=== PATIENT | male | born 1955 | race Caucasian/White ===

== ENCOUNTER 2021-08-01 19:03 | Inpatient (IN) | payer MEDICARE ==
[~2021-08-01] VITALS: Ht 177.8 cm; Wt 83.0 kg
[2021-08-01] MEDS ORDERED: ONDANSETRON 4 MG (ZOFRAN) ORAL DISSOLVE TAB PO PRN (22:00)
[2021-08-01] MEDS ORDERED: polyethylene glycoL POWDER 17 GM (MIRALAX) PACK PO PRN (22:00)
[2021-08-01] MEDS ORDERED: ALPRAZolam 0.25 MG (XANAX) TAB PO PRN (22:00)
[2021-08-01] MEDS ORDERED: MELATONIN 3 MG TABLET PO PRN (22:00)
[2021-08-01] MEDS ORDERED: ONDANSETRON 4 MG/2 ML (SDV) Z0FRAN IV PRN (22:00)
[2021-08-01] MEDS ORDERED: diphenhydrAMINE 25 MG TAB (BENADRYL) PO PRN (22:00)
[2021-08-01] MEDS ORDERED: ACETAMINOPHEN 325 MG TABLET PO PRN (22:00)
[2021-08-01 22:22] VITALS: BP 144/88
[2021-08-01 23:30] VITALS: BP 118/77
[2021-08-01 23:54] VITALS: BP 144/88
[2021-08-02] MEDS ORDERED: RT-ALBUTEROL/IPRATROPIUM 3 ML (DUONEB) VIAL INH PRN
[2021-08-02] MEDS: ENOXAPARIN 100 MG/1 ML (LOVENOX) SYR SC SCH ×3 (00:32→21:08)
[2021-08-02 04:05] VITALS: BP 139/73
[2021-08-02 05:28] LABS: HEMATOCRIT 36 % (40-54); HEMOGLOBIN 11.8 g/dL (13.3-17.7); MEAN CORPUSCULAR HEMOGLOBIN 30 pg (25-34); MEAN CORPUSCULAR HGB CONC 33 g/dL (32-36); MEAN CORPUSCULAR VOLUME 91 fL (80-99); MEAN PLATELET VOLUME 9.8 fL (9.0-12.2); PLATELET COUNT 378 10^3/uL (130-400); WHITE BLOOD COUNT 8.4 10^3/uL (4.3-11.0)
[2021-08-02 05:46] LABS: POTASSIUM 4.1 MMOL/L (3.6-5.0)
[2021-08-02 05:47] LABS: CALCIUM 8.5 MG/DL (8.5-10.1)
[2021-08-02 05:52] LABS: CREATININE SERUM 0.62 MG/DL (0.60-1.30)
[2021-08-02 07:34] VITALS: BP 132/87
[2021-08-02] MEDS: DOCUSATE SODIUM 100 MG (COLACE) CAP PO SCH ×2 (08:32→21:02)
[2021-08-02] MEDS ORDERED: IBUP200C11 PO (11:25)
[2021-08-02] MEDS ORDERED: METF-478 PO (11:25)
[2021-08-02] MEDS ORDERED: FLUO5DRO6 OU (11:25)
[2021-08-02] MEDS ORDERED: CHOL500050 PO (11:25)
[2021-08-02] MEDS ORDERED: ASPI-1238 PO (11:25)
[2021-08-02] MEDS ORDERED: DIAZ5TAB49 PO (11:25)
[2021-08-02] MEDS ORDERED: SIMV40TA25 PO (11:25)
[2021-08-02] MEDS ORDERED: OMEP20CA18 PO (11:25)
[2021-08-02] MEDS ORDERED: SALS500T16 PO (11:25)
[2021-08-02] MEDS ORDERED: ACHD5005 PO (11:25)
[2021-08-02] MEDS ORDERED: TRZ50T PO (11:25)
[2021-08-02] MEDS ORDERED: ZINC50TA58 PO (11:25)
[2021-08-02 11:35] VITALS: BP 124/78
--- NOTE | 2021-08-02 12:41 | History & Physical-Hospitalist ---
JOSE DAVID CHAUHAN 08/02/21 1241: History of Present Illness HPI/Chief Complaint The patient is a 65 YO male with a PMH of DMT2, corneal disease, and previous COVID-19 infection, who is admitted for pulmonary embolism. The patient reports being infected with COVID-19 around Thanksgiving time of this year. He was unvaccinated. He reports taking steroids, and possible monoclonal antibody infusion for his COVID. He was not hospitalized. Since his COVID infection he reports tracking his O2 sats, and at times being in the high 70s. DT his low O2 sats he has also started home oxygen at 3L. The patient reports that yesterday he was having SOB and satting in the low 70s while not on O2, which prompted him to go to the emergency room, where imaging found bilateral pulmonary emboli. He does mention that about 10 days ago having a CT done, which did not show any pulmonary emboli. Date Seen 08/02/21 Time Seen by a Provider: 09:15 Attending Physician Gladys Butts MD PCP No,Local Physician Referring Physician Date of Admission Aug 01, 2021 at 21:47 Home Medications & Allergies Home Medications Reviewed patient Home Medication Reconciliation performed by pharmacy medication reconciliations records technician and/or nursing. Patients Allergies have been reviewed. Allergies Allergies Coded Allergies tramadol (Verified Allergy, Unknown, 08/02/21) Past Cmytmmz-Nfqeuz-Nciyyq Hx Patient Social History Tobacco Use?: Yes Tobacco type used: Cigarettes Smoking Status: Former Smoker Use of E-Cig and/or Vaping dev: No Substance use?: No Alcohol Use?: No Pt feels they are or have been: No Immunizations Up To Date First/Initial COVID19 Vaccinat: N/A Second COVID19 Vaccination Adrian: N/A Tetanus Booster (TDap): More Than 5 Years Hepatitis A: No Hepatitis B: No Current Status Advance Directives: No Communicates: Verbally Primary Language: Argentine Preferred Spoken Language: Argentine Is interpretation needed?: No Sensory deficits: Vision impairment Implanted or Applied Medical D: None Past Medical History Surgeries: Eye Surgery (cataract) Diabetes, Non-Insulin dep (takes 500 mg of metformin daily ) Review of Systems Constitutional: No chills, No fever EENTM: No blurred vision, No double vision Respiratory: cough, short of breath Cardiovascular: No chest pain, No palpitations Gastrointestinal: No nausea, No vomiting Musculoskeletal: No joint pain, No neck pain Skin: other (venous stasis dermatitis bilateral LE) Psychiatric/Neurological: Denies Depressed, Denies Headache Physical Exam Physical Exam Vital Signs Vital Signs - First Documented 08/01/21 08/01/21 21:37 22:22 Temp 36.6 Pulse 104 Resp 18 B/P (MAP) 144/88 (106) Pulse Ox 92 O2 Delivery Nasal Cannula O2 Flow Rate 3.00 Capillary Refill : Height, Weight, BMI Height: '" Weight: lbs. oz. kg; 26.16 BMI Method: General Appearance: No Apparent Distress, Chronically ill Eyes: Bilateral Eye Normal Inspection, Bilateral Eye PERRL, Bilateral Eye EOMI HEENT: PERRL/EOMI, Pharynx Normal, Moist Mucous Membranes Respiratory: Chest Non Tender, Lungs Clear, Normal Breath Sounds, No Accessory Muscle Use, No Respiratory Distress Cardiovascular: Regular Rate, Rhythm, No Edema, No Murmur, Normal Peripheral Pulses Gastrointestinal: Normal Bowel Sounds, No Organomegaly, No Pulsatile Mass, Non Tender, Soft Extremity: No Calf Tenderness, No Pedal Edema Neurologic/Psychiatric: Alert, Oriented x3, No Motor/Sensory Deficits, Normal Mood/Affect Skin: Warm/Dry, Other (venous stasis dermatitis of bilateral LE ) Results Results/Procedures Labs Laboratory Tests 08/02/21 05:10 Patient resulted labs reviewed. Assessment/Plan Assessment and Plan 65 YO male admitted for bilateral pulmonary emboli, with hx of previous COVID-19 infection, DMT2, and corneal disease. Bilateral pulmonary emboli previous COVID-19 infection PE likely secondary to previous COVID-19 infection. Will continue on Lovenox 80mg Q12 HR. Will try to DC tomorrow on oral Eliquis or Xarelto for at least 3 mo. Start Robitussin-DM for cough. COVID test negative yesterday. DMT2 Patient advised to increase Metformin dose up to 1000mg BID. At this time he agreed to increase his dose to 1000mg once daily for a few weeks, before a possible increase to the maximal dosage. Corneal disease Continue home eye drops. GLADYS BUTTS MD 08/02/211811: History of Present Illness Source: patient Exam Limitations: no limitations Date Seen 08/02/2021 Time Seen by a Provider: 11:20 Past Lyzfamn-Kalunc-Pmfjag Hx Patient Social History Tobacco type used: Cigarettes Smoking Status: Former Smoker Family Medical History No Pertinent Family Hx Assessment/Plan Admission Diagnosis Bilateral pulmonary emboli Admission Status: Inpatient Order (span 2 midnights) Reason for Inpatient Admission: Pulmonary emboli requiring anticoagulation Assessment and Plan Admitted with bilateral PE and acute on chronic respiratory failure with hypoxia. Started on Lovenox. Monitor closely. Diagnosis/Problems Diagnosis/Problems (1) Acute on chronic respiratory failure with hypoxia Status: Acute (2) Bilateral pulmonary embolism Status: Acute Supervisory-Addendum Brief Verification & Attestation Participated in pt care: history, MDM, physical Personally performed: exam, history, MDM, supervision of care Care discussed with: Medical Student Procedures: n/a Results interpretation: Verified all documentation A medical student performed and documented this service in my presence. I reviewed and verified all information documented by the medical student and made modifications to such information, when appropriate. I personally performed the physical exam and medical decision making. JOSE DAVID CHAUHAN Aug 02, 2021 12:41 GLADYS BUTTS MD Aug 02, 2021 18:12
[2021-08-02 15:35] VITALS: BP 133/81
[2021-08-02] MEDS: ANTACID SUSP 30 ML UDC (MYLANTA) PO PRN (15:41)
[2021-08-02] MEDS: guaiFENesin/DM (ROBITUSSIN DM) 10 ML UDC PO PRN (15:44)
[2021-08-02 19:04] VITALS: BP 114/73
[2021-08-03 00:55] VITALS: BP 120/62
[2021-08-03] MEDS: guaiFENesin/DM (ROBITUSSIN DM) 10 ML UDC PO PRN ×2 (01:37→12:41)
[2021-08-03 04:35] VITALS: BP 126/74
[2021-08-03 07:42] VITALS: BP 134/77
[2021-08-03] MEDS: DOCUSATE SODIUM 100 MG (COLACE) CAP PO SCH (09:36)
[2021-08-03] MEDS: ENOXAPARIN 100 MG/1 ML (LOVENOX) SYR SC SCH (09:37)
[2021-08-03] MEDS ORDERED: METF-478 PO (10:40)
[2021-08-03] MEDS ORDERED: APIX5TAB PO ×2 (10:40→16:14)
[2021-08-03] MEDS ORDERED: APIXABAN 5 MG (ELIQUIS) TABLET PO NR (10:40)
[2021-08-03] MEDS ORDERED: metFORMIN 500 MG (GLUCOPHAGE) TAB PO NR (11:00)
--- NOTE | 2021-08-03 11:23 | Discharge Summary ---
Discharge Summary Hospital Course Was the Problem List Reviewed?: Yes Problems/Dx: (1) Acute on chronic respiratory failure with hypoxia Status: Acute (2) Bilateral pulmonary embolism Status: Acute (3) Post-COVID chronic dyspnea Status: Chronic Hospital Course Date of Admission: Aug 01, 2021 at 21:47 Admission Diagnosis : Bilateral pulmonary embolism Family Physician/Provider: Kori,Local Physician Date of Discharge: 08/03/21 Discharge Diagnosis: Bilateral pulmonary embolism Hospital Course: Shaun Albert is a 65 year old male with recent COVID infection now on home oxygen who presented with worsening shortness of breath and was admitted with bilateral pulmonary embolism. He was started on Lovenox and then transitioned to Eliquis. He was given an Eliquis card to receive his first month free and will then receive it through the [place]. He was requiring slightly more oxygen. He underwent a home oxygen evaluation and was needing 3 L continuously and 5 L with activity. He was discharged home in stable condition. He should follow up with his PCP in a week or two. Labs and Pending Lab Test: Home Meds Active Eliquis (Apixaban) 5 Mg Tablet 5 Mg PO BID 30 Days TAKE 2 TABLETS BID X 7 DAYS, THEN 1 TABLET BID Metformin HCl ER (Metformin HCl) 500 Mg Tab.er.24 1,000 Mg PO DAILY 30 Days Reported Aspirin EC (Aspirin) 81 Mg Tablet. 81 Mg PO Q48H Advil (Ibuprofen) 200 Mg Capsule 400 Mg PO Q8H PRN Zinc 50 Mg Tablet 50 Mg PO DAILY Vitamin D3 (Cholecalciferol (Vitamin D3)) 125 Mcg Capsule 125 Mcg PO DAILY Hydrocodone-Acetamin 5-325 mg (Hydrocodone/Acetaminophen) 1 Each Tablet 1 Tab PO Q6H PRN Diazepam 5 Mg Tablet 5 Mg PO Q6H PRN Fluorometholone 5 Ml Drops.susp 1 Drop OU BID Trazodone HCl 50 Mg Tablet 50 Mg PO HS Simvastatin 40 Mg Tablet 40 Mg PO HS Salsalate 500 Mg Tablet 1,000 Mg PO BID TAKES 2 (500MG) TABS Omeprazole 20 Mg Capsule.dr 20 Mg PO DAILY Assessment/Pt Instructions Take medications as prescribed. Begin taking Eliquis. Follow up with your PCP. Return with worsening shortness of breath, chest pain, or if you feel like you are getting worse. Discharge Planning: <30 minutes discharge planning Discharge Instructions Discharge Diet: No Restrictions Activity as Tolerated: Yes Discharge Physical Examination Vital Signs Vital Signs Date Time Temp Pulse Resp B/P (MAP) Pulse Ox O2 Delivery O2 Flow Rate FiO2 08/03/21 09:31 98 Nasal Cannula 3.00 08/03/21 07:42 37.0 85 20 134/77 (96) General Appearance: No Apparent Distress, WD/WN Respiratory: Lungs Clear, Normal Breath Sounds, No Respiratory Distress Cardiovascular: Regular Rate, Rhythm, No Edema, No Murmur Gastrointestinal: Normal Bowel Sounds, Non Tender, Soft Extremity: Normal Inspection, Non Tender, No Pedal Edema Skin: Normal Color, Warm/Dry Neurologic/Psychiatric: Alert, No Motor/Sensory Deficits, Normal Mood/Affect Allergies: Coded Allergies: tramadol (Verified Allergy, Unknown, 08/02/21) Discharge Summary Date of Admission Aug 01, 2021 at 21:47 Date of Discharge Discharge Date: Aug 03, 2021 Discharge Time: 10:25 Admission Diagnosis Bilateral pulmonary emboli Discharge Diagnosis Bilateral pulmonary embolism (1) Acute on chronic respiratory failure with hypoxia Status: Acute (2) Bilateral pulmonary embolism Status: Acute MIRELLA BUTTS MD Aug 03, 2021 11:23
[2021-08-03 11:30] VITALS: BP 124/80
[2021-08-03] MEDS: ANTACID SUSP 30 ML UDC (MYLANTA) PO PRN (12:41)
[2021-08-03 14:08] VITALS: BP 124/80
[2021-08-03] MEDS ORDERED: APIXABAN 5 MG (ELIQUIS) TABLET PO SCH (21:00)
[2021-08-10] MEDS ORDERED: APIXABAN 5 MG (ELIQUIS) TABLET PO SCH (09:00)
== END 2021-08-03 13:40 | disposition home or self-care (01) | DRG 175 ==
LOC: 4TH 21:47
PROVIDERS: ADMIT Internal Medicine; ATTEND Internal Medicine
DX: I26.99 Other pulmonary embolism without acute cor pulmonale (principal); J96.21 Acute and chronic respiratory failure with hypoxia; U09.9 Post COVID-19 condition, unspecified; E11.9 Type 2 diabetes mellitus without complications; H18.9 Unspecified disorder of cornea; Z87.891 Personal history of nicotine dependence
CPT/HCPCS: 36415; 80048; 85027; 94664; 94760; 94761